=== PATIENT | female | born 1960 | race Caucasian/White ===

== ENCOUNTER 2021-12-13 07:44 | Emergency (ER) | payer MEDICARE, OTHER ==
[~2021-12-13] VITALS: Ht 157.5 cm; Wt 72.6 kg
[2021-12-13 09:17] LABS: BASOPHIL 0.4 % (0-2); EOSINOPHIL 1.6 % (0-5); HCT 43.2 % (37.0-47.0); HGB 14.2 g/dl (12.5-16.0); LYMPHOCYTE 25.6 % (15-48); MCH 30.4 pg (25.0-31.0); MCHC 32.9 g/dL (32.0-36.0); MCV 92.5 fL (78.0-100.0); MONOCYTE 7.2 % (0-12); MPV 8.8 fL (6.0-9.5); NEUTROPHIL 64.6 % (41-80); NRBC 0; PLT 384 K/uL (150-400); RBC 4.67 M/uL (4.20-5.40); RDW 13.4 % (11.5-14.0); WBC 13.5 K/uL (4.0-10.5)
[2021-12-13] MEDS ORDERED: CLEOCIN300 MG PO (10:44)
== END 2021-12-13 11:23 | disposition home or self-care (01) ==
LOC: FER 07:44
PROVIDERS: Emergency Medicine
DX: T81.49XA Infection following a procedure, other surgical site, initial encounter (principal); L03.112 Cellulitis of left axilla; F17.210 Nicotine dependence, cigarettes, uncomplicated; Z88.0 Allergy status to penicillin
CPT/HCPCS: 36415; 84145; 85025; 86140; 87070; 87205; J3370; J7050